=== PATIENT | female | born 1980 | race Caucasian/White ===

== ENCOUNTER 2019-01-13 09:00 | Inpatient (IN) | payer MEDICAID, OTHER ==
[2019-01-13] MEDS ORDERED: BRETHINE SUB-Q PRN (09:32)
[2019-01-13] MEDS ORDERED: LANSINOH TP PRN (09:37)
[2019-01-13] MEDS ORDERED: NORCO 5/325 PO PRN (09:37)
[2019-01-13] MEDS ORDERED: TUCKS PAD TP PRN (09:37)
[2019-01-13] MEDS ORDERED: IBUPROFEN ONE (09:48)
--- NOTE | 2019-01-13 09:56 | History and Physical Report ---
History of Present Illness Date of examination: 01/13/19 Date of admission: 01/13/19 09:00 Chief complaint: Contractions History of present illness: 38 year old presents to L&D in active advanced labor and feeling need to push. She states contractions began at 06:30 this morning and a small amount of clear fluid leaked at 07:30 this morning. Patient denies vaginal bleeding. Patient received care at [facility] and she brings records with her. LMP 04/03/18. EDC 01/08/19. significant for the following: Advanced maternal age, GBS positive, last baby with heart defect (patient declined perinatology). labs are as follows: B+, antibody screen negative, pap smear negative, rubella immune, RPR nonreactive, hepatitis B surface antigen negative, HIV negative, chlamydia negative, gonorrhea negative, quad screen negative, diabetes screen 91, GBS positive. 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 denies: smoking, alcohol abuse, prescription drug abuse, IV drug use - Obstetrical History Expected Date of Delivery: 01/08/19 Actual Gestation: 40 Week(s) 5 Day(s) : 4 Para: 2 Hx # Term Pregnancies: 2 Number of Pregnancies: 0 Spontaneous Abortions: 1 Induced : 0 Number of Living Children: 2 Medications and Allergies Active Meds: Active Medications Acetaminophen/Hydrocodone Bitart ([place] 5/325) 2 each PO Q6H PRN PRN Reason: Pain, Moderate (4-6) Bisacodyl (Dulcolax) 10 mg MD BID PRN PRN Reason: Constipation Docusate Sodium (Colace) 100 mg PO BID SAMUEL Ephedrine Sulfate (Ephedrine Sulfate) 10 mg IV Q2M PRN PRN Reason: Hypotension Oxytocin/Sodium Chloride (Pitocin/Ns 20 Unit/1000ml Drip) 20 units in 1,000 mls @ 125 mls/hr IV DIRECT SAMUEL Lactated Ringer's (Lactated Ringers) 1,000 mls @ 125 mls/hr IV DIRECT SAMUEL Ibuprofen (Ibuprofen) 800 mg PO Q8H PRN PRN Reason: Pain, Mild (1-3) Magnesium Hydroxide (Milk Of Magnesia) 30 ml PO HS PRN PRN Reason: Constipation Multi-Ingredient Ointment (Lansinoh) 1 applic TP PRN PRN PRN Reason: Sore Nipples Sodium Chloride (Sodium Chloride Flush Syringe 10 Ml) 10 ml IV PRN NR Terbutaline Sulfate (Brethine) 0.25 mg SUB-Q ONCE PRN PRN Reason: Hyperstimulation/Hypertonicity Witch Danielle/Glycerin (Tucks Pad) 1 each TP PRN PRN PRN Reason: Hemorrhoid/cleansing/soothing Review of Systems All systems: negative (contractions and leaking of water) - Vital Signs Vital signs: Vital Signs Pulse Pulse Ox 91 H 99 01/13/19 09:19 01/13/19 09:19 Temp Pulse Resp BP Pulse Ox 71 149/84 99 01/13/19 09:47 01/13/19 09:47 01/13/19 09:24 - Physical Exam Abdomen: Positive: normal appearance, soft. Negative: distention, tenderness, guarding, rigidity Genitourinary (Female): Positive: normal external genitalia, normal perenium. Negative: perineal/vulvar lesions Vagina: Positive: normal moisture Uterus: Positive: enlarged. Negative: tender Anus/Rectum: Positive: normal perianal skin Extremities: Positive: normal. Negative: tenderness, edema - Obstetrical FHR: category 2 Uterine Contraction Monitor Mode: External Cervical Dilatation: 10 Cervical Effacement Percentage: 10 station: +2 Uterine Contraction Pattern: Regular Uterine Contraction Intensity: Strong/Firm Results All other labs normal. Assessment and Plan A: at 40 weeks, 5 days gestation. Active advanced labor. GBS positive. P: Admit. Anticipate vaginal . Baby delivering upon presentation to OB unit; no IV in place; patient did not receive GBS prophylaxis for this reason.
[2019-01-13 09:58] LABS: Hematocrit 45.3 % (30.3-42.9); Hemoglobin 15.4 gm/dl (10.1-14.3); Mean Corpuscular HGB Conc 34 % (30-34); Mean Corpuscular Volume 87 fl (79-97); Platelet Count 279 K/mm3 (140-440); Red Cell Distribution Width 15.3 % (13.2-15.2)
[2019-01-13] MEDS ORDERED: LACTATED RINGERS 1,000 ML IV SCH (10:00)
[2019-01-13] MEDS ORDERED: SODIUM CHLORIDE FLUSH SYRINGE 10 ML IV NR (10:00)
[2019-01-13] MEDS ORDERED: DULCOLAX PR PRN (10:00)
[2019-01-13] MEDS ORDERED: PITOCin/NS 20 UNIT/1000ML DRIP 20 UNITS/1,000 ML BAG IV SCH (10:00)
[2019-01-13] MEDS ORDERED: IBUPROFEN PO SCH (10:00)
[2019-01-13] MEDS: IBUPROFEN PO PRN ×2 (10:01→18:18)
--- NOTE | 2019-01-13 11:05 | Procedure Note ---
OB Delivery Note - Delivery Date of Delivery: 01/13/19 Surgeon: CECI HENDRICKS Estimated blood loss: 200cc - Vaginal Delivery presentation: vertex Delivery position: OA Delivery induction: none Delivery monitor: external FHT, external uterine Delivery placenta: spontaneous Delivery cord: 3 umbilical vessels Episiotomy: none Delivery laceration: none Anesthesia: epidural Delivery comments: Spontaneous vaginal delivery at 09:17 of liveborn female weighing 8 lb. 9 oz. over intact perineum with apgars of 8/8. Baby placed immediately skin to skin with mom after . 3 vessel cord double clamped and cut after cessation of pulsation. Spontaneous delivery of intact placenta and membranes. EBL 200 cc. Pitocin given after delivery of placenta. Fundus firm and midline. Vaginal sweep negative. No lacerations noted. Sponge count correct. Mother and baby stable.
--- NOTE | 2019-01-13 11:22 | Event Note ---
Date: 01/13/19 Patient started on Augmentin PO for right vulvar abscess. Planning to breastfeed.
[2019-01-13] MEDS: AUGMENTIN 500 MG PO SCH ×2 (13:55→21:24)
[2019-01-13] MEDS ORDERED: SUBLIMAZE ONE (14:36)
[2019-01-13] MEDS ORDERED: SUBLIMAZE IV ONE (15:32)
--- NOTE | 2019-01-13 15:53 | Event Note ---
Date: 01/13/19 Called to evaluate patient due to vulvar pain. What was previously thought to be a small right vulvar abscess now appears to be an enlarging hematoma, stretching from mons pubis to anus. Dr. Cook notified and he also came and examined patient. Pelvic CT ordered by Dr. Cook. CBC ordered. Pt. has received Fentanyl for pain.
[2019-01-13 16:39] LABS: Hematocrit 36.4 % (30.3-42.9); Hemoglobin 12.5 gm/dl (10.1-14.3); Mean Corpuscular HGB Conc 34 % (30-34); Mean Corpuscular Volume 87 fl (79-97); Platelet Count 210 K/mm3 (140-440); Red Blood Count 4.18 M/mm3 (3.65-5.03); Red Cell Distribution Width 15.4 % (13.2-15.2)
[2019-01-13 17:33] LABS: Band Neutrophils # (Manual) 0.5 K/mm3; Basophils % (Manual) 0 % (0.0-1.8); Eosinophils % (Manual) 0 % (0.0-4.3); Total Cells Counted 100
[2019-01-13 17:34] LABS: Ovalocytes Few; Platelet Estimate Consistent w Auto; Poikilocytosis Few
--- NOTE | 2019-01-13 18:17 | Cat Scan Report ---
PROCEDURE: CT PELVIS WO CON TECHNIQUE: CT of the pelvis obtained without contrast. HISTORY: Vulvar hematoma/mass COMPARISONS: FINDINGS: There is an 8.5 x 3.5 x 6.5 cm hypodense lesion seen along the right vulvar soft tissue with surround ing stranding, worrisome for hematoma. Correlate for recent trauma versus instrumentation. Mass effec t seen on the urethra and Motley catheter. Uterus is enlarged with hyperdense clot seen in the lower uterine segment/cervix. Motley catheter seen in the collapsed bladder. No acute fracture or dislocation. IMPRESSION: an 8.5 x 3.5 x 6.5 cm hypodense lesion seen along the right vulvar soft tissue with surrounding stran ding, worrisome for hematoma. Correlate for recent trauma versus instrumentation. Mass effect seen on the urethra and Motley catheter.. This document is electronically signed by Ranjit Bowden MD., January 13 2019 07:15:46 PM ET
[2019-01-13] MEDS: PERCOCET 5/325 PO PRN (18:18)
[2019-01-13] MEDS: COLACE PO SCH ×2 (18:38→21:24)
[2019-01-13 20:26] LABS: Hematocrit 36.6 % (30.3-42.9); Hemoglobin 12.3 gm/dl (10.1-14.3)
[2019-01-13] MEDS ORDERED: MILK OF MAGNESIA PO PRN (22:00)
--- NOTE | 2019-01-14 07:46 | Event Note ---
Date: 01/14/19 Spoke with patient's nurse who states pt.'s pain is well controlled on Percocet. H/H pending this morning still. Motley catheter in place draining well. Made Dr. Cook aware of pelvic CT results last evening. Just informed oncoming CNM and MD of hematoma and pelvic CT results and pending H/H.
[2019-01-14 08:48] LABS: Hematocrit 33.8 % (30.3-42.9); Hemoglobin 11.5 gm/dl (10.1-14.3)
[2019-01-14] MEDS: AUGMENTIN 500 MG PO SCH ×2 (10:47→22:38)
[2019-01-14] MEDS: COLACE PO SCH ×2 (10:47→22:39)
--- NOTE | 2019-01-14 12:59 | Progress Note ---
Assessment and Plan - Patient Problems (1) Vulvar hematoma Current Visit: Yes Status: Acute Plan to address problem: 1. Re-examine tomorrow. Anticipate need for hematoma evacuation due to urethral displacement. Regular diet now and NPO at night. Will continue main OR and consult interventional radiology for possible artery embolization Monitor creatinine and H/H. Subjective - Subjective Interval history: PPD#1 s/p now managed for 8.5cm right vulvar hematoma. She reports the hematoma as painful. The fonseca catheter is in place and visually displaced to the left. She states the narcotics are helping her pain. Her vaginal bleeding is well controlled. Objective - Vital Signs Latest vital signs: Vital Signs Temp Pulse Resp BP BP Pulse Ox 01/14/19 07:43 97.7 F 62 18 115/73 98 01/14/19 01:40 98 F 69 20 106/67 96 01/13/19 21:32 97.9 F 81 18 124/74 98 01/13/19 16:51 98.0 F 67 22 122/76 97 01/13/19 15:55 98.1 F 66 20 134/69 96 01/13/19 13:00 98.2 F 92 H 14 137/80 98 Intake and Output 01/13/19 01/14/19 01/14/19 23:59 07:59 15:59 Intake Total 240 660 Output Total 300 800 Balance -60 -140 Intake: Intake, Free Water 240 660 Output: Urine 300 800 Indwelling Catheter 800 Uretheral (Fonseca) 300 Other: Total, Output Amount 200 - Exam Vulva: right: laceration/episiotomy (Right vulvar hematoma examined, tender to touch, non erythematous, firm 8.5x3.5x6.5cm on CT, displacing fonseca catheter ) - Labs Labs: Abnormal lab results 01/13/19 Range/Units 16:21 WBC 15.4 H (4.5-11.0) K/mm3 RDW 15.4 H (13.2-15.2) % Seg Neuts % (Manual) 89.0 H (40.0-70.0) % Lymphocytes % (Manual) 4.0 L (13.4-35.0) % Seg Neutrophils # Man 13.7 H (1.8-7.7) K/mm3 Lymphocytes # (Manual) 0.6 L (1.2-5.4) K/mm3
[2019-01-14] MEDS: PERCOCET 5/325 PO PRN (13:10)
[2019-01-14 13:39] LABS: BUN/Creatinine Ratio 15; Blood Urea Nitrogen 6 mg/dL (7-17); Calcium 8.7 mg/dL (8.4-10.2); Hemolysis Index 12
[2019-01-14 15:17] LABS: Hematocrit 35.9 % (30.3-42.9); Hemoglobin 12.2 gm/dl (10.1-14.3); Mean Corpuscular HGB Conc 34 % (30-34); Mean Corpuscular Volume 87 fl (79-97); Platelet Count 218 K/mm3 (140-440); Red Blood Count 4.12 M/mm3 (3.65-5.03); Red Cell Distribution Width 15.5 % (13.2-15.2)
--- NOTE | 2019-01-14 15:42 | Consultation ---
History of Present Illness - Reason for Consult Consult date: 01/14/19 right labial hematoma - History of Present Illness 38 year old presents to L&D in active advanced labor and feeling need to push. She had a vaginal delivery yesterday. Immediately afterwards, she developed a fullness in the right labia which was quite painful and began to enlarge. The enlarging labial mass/hematoma enlarged yesterday, but has not enlarged at all today. Stable in size per patient. Overlying skin is not compromised. Large right labial hematoma. Palpable radial artery and ulnar artery on physical exam. Past History Past Medical History: No medical history Past Surgical History: No surgical history Social history: , lives with family, full code. denies: smoking, alcohol abuse, prescription drug abuse, IV drug use Family history: no significant family history Medications and Allergies Allergies Allergy/AdvReac Type Severity Reaction Status Date / Time No Known Allergies Allergy Verified 01/13/19 09:57 Home Medications Medication Instructions Recorded Confirmed Last Taken Type Vit-Fe Fumar-FA [ 1 tab PO QDAY 01/13/19 01/13/19 01/12/19 09:00 History Vitamin] 1 Active Meds: Active Medications Amoxicillin/Clavulanate Potassium (Augmentin 500 Mg) 1 each PO Q12HR [facility] Last Admin: 01/14/19 10:47 Dose: 1 each Documented by: Bisacodyl (Dulcolax) 10 mg KS BID PRN PRN Reason: Constipation Docusate Sodium (Colace) 100 mg PO BID [facility] Last Admin: 01/14/19 10:47 Dose: 100 mg Documented by: Ibuprofen (Ibuprofen) 800 mg PO Q8H PRN PRN Reason: Pain, Mild (1-3) Last Admin: 01/13/19 18:18 Dose: 800 mg Documented by: Magnesium Hydroxide (Milk Of Magnesia) 30 ml PO HS PRN PRN Reason: Constipation Multi-Ingredient Ointment (Lansinoh) 1 applic TP PRN PRN PRN Reason: Sore Nipples Last Admin: 01/13/19 18:17 Dose: 1 applic Documented by: Oxycodone/Acetaminophen (Percocet 5/325) 2 tab PO Q6H PRN PRN Reason: Pain, Moderate (4-6) Last Admin: 01/14/19 13:10 Dose: 2 tab Documented by: Sodium Chloride (Sodium Chloride Flush Syringe 10 Ml) 10 ml IV PRN NR Stop: 01/14/19 23:59 Witch Danielle/Glycerin (Tucks Pad) 1 each TP PRN PRN PRN Reason: Hemorrhoid/cleansing/soothing Last Admin: 01/13/19 18:17 Dose: 1 each Documented by: Review of Systems All systems: negative (see HPI) Exam - Constitutional Vitals: Temp Pulse Resp BP Pulse Ox 97.7 F 62 18 115/73 98 01/14/19 07:43 01/14/19 07:43 01/14/19 07:43 01/14/19 07:43 01/14/19 07:43 General appearance: Present: mild distress (right labial hematoma) - EENT Eyes: Present: EOM intact ENT: hearing intact - Respiratory Respiratory effort: normal - Extremities Extremities: normal temperature, normal color Peripheral Pulses: within normal limits (left radial and ulnar pulse) - Abdominal General gastrointestinal: Present: soft Female genitourinary: Present: other (right labial hematoma without skin compromise) - Psychiatric Psychiatric: appropriate mood/affect, cooperative Results - Labs CBC & Chem 7: 01/14/19 14:45 01/14/19 12:55 Labs: Abnormal lab results 01/13/19 01/14/19 01/14/19 Range/Units 16:21 12:55 14:45 WBC 15.4 H (4.5-11.0) K/mm3 RDW 15.4 H 15.5 H (13.2-15.2) % Seg Neuts % (Manual) 89.0 H (40.0-70.0) % Lymphocytes % (Manual) 4.0 L (13.4-35.0) % Seg Neutrophils # Man 13.7 H (1.8-7.7) K/mm3 Lymphocytes # (Manual) 0.6 L (1.2-5.4) K/mm3 Carbon Dioxide 21 L (22-30) mmol/L BUN 6 L (7-17) mg/dL Creatinine 0.4 L (0.7-1.2) mg/dL Assessment and Plan 38-year-old female with large right labial hematoma occurring after vaginal delivery which has not enlarged since this morning. Given the lack of enlargement, no emergent need for embolization. CT angiogram of the abdomen and pelvis will be performed. Based on results, such as if there is a pseudoaneurysm, then angiography and embolization will be re quired. CTA ordered.
[2019-01-14] MEDS: IBUPROFEN PO PRN (17:36)
--- NOTE | 2019-01-14 18:57 | Cat Scan Report ---
PROCEDURE: CT ABDOMEN PELVIS WO/W CON TECHNIQUE: Computerized axial tomography of the abdomen and pelvis was performed without and with in travenous contrast. Arterial, venous, delayed phases was obtained HISTORY: non cont, CT angio, CT susan, CT delay R lab hematom COMPARISONS: CT pelvis 01/13/2019 . FINDINGS: Visualized lower thorax: No significant abnormality. Liver: Normal size and attenuation. Spleen: Normal size and attenuation. Gallbladder and biliary system: Normal. Pancreas: Normal. Adrenals: Normal. Kidneys: Normal. GI tract: Normal . Lymph nodes and mesentery: Normal. Vasculature: Normal.. Bladder: Collapsed containing a Motley catheter balloon. Reproductive organs: Uterus is markedly enlarged extending up to the level the umbilicus. There is a hyperdense focus in the endometrial canal of the lower uterus and cervical canal, likely areas of blo od clot. On the arterial images, the intrauterine vasculature extends close to the posterior margin o f the endometrium within the the upper uterus (sagittal image 106/209, series 601). However, no defin ite extravasation of contrast into the endometrial canal is visualized on this exam. There are 2 hypodense foci along the right side of the uterus anterior margin measuring 2.2 cm and 1. 5 cm, likely small fibroids. Similar focus is seen in the left margin of the uterine fundus measuring 1.8 cm, also likely a fibroid. Peritoneum: No free fluid. Musculoskeletal structures: No significant abnormality. Other: Bilobed mildly hyperdense lesion in the right side of the vulva is unchanged in appearance. S urrounding edema in the adjacent fat is again noted, similar to the previous study. The mass effect o n the urethra shifting it to the left is unchanged. IMPRESSION: 1. Enlarged uterus containing hyperdense material within the lower endometrial canal and cervical can al, likely related to blood clots 2. The intrauterine vasculature extends close to the posterior margin of the endometrium within the u pper uterus. Definite extravasation of contrast into the endometrial canal is not visualized 3. Multiple hypodense foci in the uterus periphery, likely fibroids 4. No change in the hyperdense bilobed focus involving the right side of the vulva This document is electronically signed by Rose Marie House MD., January 14 2019 07:55:44 PM ET
[2019-01-15] MEDS: PERCOCET 5/325 PO PRN ×4 (06:27→22:53)
[2019-01-15] MEDS: AUGMENTIN 500 MG PO SCH (10:28)
[2019-01-15] MEDS: IBUPROFEN PO PRN (10:29)
[2019-01-15] MEDS: COLACE PO SCH ×2 (10:31→22:53)
--- NOTE | 2019-01-15 10:49 | Event Note ---
Date: 01/15/19 CTA of the abdomen and pelvis reviewed. Other does not appear to be any pseudoaneurysm or active bleeding within the hematoma. Would not do pre- operative embolization prior to evacuation however, we will be available should the need arise.
--- NOTE | 2019-01-15 10:57 | Progress Note ---
Assessment and Plan - Patient Problems (1) (normal spontaneous vaginal delivery) Current Visit: Yes Status: Acute Plan to address problem: Continue routine PP orders Remain NPO until seen by physician to discuss POC (2) Vulvar hematoma Current Visit: Yes Status: Acute Plan to address problem: Consultation with physician regarding POC Continue pain meds as needed for comfort Anticipate d/c home in 24-48 hrs Subjective - Subjective Date of service: 01/15/19 Principal diagnosis: ; Hematoma (vaginal) Interval history: See Admission H & P, OB delivery summary and PP progress notes Patient reports: appetite normal, voiding normally, pain poorly controlled (hematoma site painful) : doing well, other () Objective - Vital Signs Latest vital signs: Vital Signs Temp Pulse Resp BP BP Pulse Ox 01/15/19 08:49 98.1 F 59 L 18 122/79 98 01/15/19 02:15 98.2 F 63 20 112/74 97 01/14/19 17:46 97.9 F 68 20 116/73 98 Intake and Output 01/14/19 01/15/19 01/15/19 23:59 07:59 15:59 Intake Total 240 Output Total 1000 Balance -1000 240 Intake: Oral 240 Output: Urine 1000 Indwelling Catheter 1000 Other: Total, Intake Amount 240 Total, Output Amount 1000 # Voids Indwelling Catheter 1 Void 1 - Exam Breasts: Present: normal Cardiovascular: Present: Regular rate Lungs: Present: Normal air movement Abdomen: Present: soft, normal bowel sounds Vulva: right: normal (Large hematoma noted on right ) Uterus: Present: firm, fundal height below umbilicus (U-1) Extremities: Present: normal Deep Tendon Reflex Grade: Normal +2 - Labs Labs: Abnormal lab results 01/14/19 01/14/19 Range/Units 12:55 14:45 RDW 15.5 H (13.2-15.2) % Carbon Dioxide 21 L (22-30) mmol/L BUN 6 L (7-17) mg/dL Creatinine 0.4 L (0.7-1.2) mg/dL
[2019-01-15] MEDS ORDERED: DILAUDID IV PRN (13:22)
[2019-01-15] MEDS ORDERED: SUBLIMAZE IV PRN (13:22)
[2019-01-15] MEDS ORDERED: ZOFRAN IV PRN (13:22)
--- NOTE | 2019-01-15 13:32 | Anesthesia Day of Surgery ---
Anesthesia Day of Surgery - Day of Surgery Patient Examined: Yes Patient H&P Reviewed: Yes Patient is NPO: Yes
--- NOTE | 2019-01-15 13:33 | Anesthesia Consultation ---
Anesthesia Consult and Med Hx Date of service: 01/15/19 - Airway Anesthetic Teeth Evaluation: Good ROM Head & Neck: Adequate Mental/Hyoid Distance: Adequate Mallampati Class: Class II Intubation Access Assessment: Good - Pre-Operative Health Status ASA Pre-Surgery Classification: ASA2 Proposed Anesthetic Plan: General - Pre-Anesthesia Comment Pre-Anesthesia Comments: Pt is post- and is - Pulmonary Hx Asthma: No - Cardiovascular System Hx Hypertension: No - Central Nervous System Hx Seizures: No Hx Psychiatric Problems: No - Endocrine Hx Renal Disease: No Hx Hypothyroidism: No Hx Hyperthyroidism: No - Hematic Hx Anemia: No Hx Sickle Cell Disease: No - Other Systems Hx Alcohol Use: No
--- NOTE | 2019-01-15 13:39 | Event Note ---
Spoke with Dr. Russell and agrees with decision to proceed to surgical management due to size of non-expanding vulvar hematoma that has not decreased in size. He states interpretation of CT is that the hematoma is not actively bleeding. Discussed risks including but not limited to bleeding, infection, injury to surrounding organs including rectum, disfigurement of vulvar, skin, vulvar scarring and loss of sensation. Benefits and alternatives discussed and informed consent signed. All questions were answered. Proceed to evacuation of right vulvar hematoma.
[2019-01-15] MEDS ORDERED: SUBLIMAZE ONE (13:42)
[2019-01-15] MEDS ORDERED: DIPRIVAN 10 MG/ML IV ONE (13:42)
[2019-01-15] MEDS ORDERED: ceFAZolin 2 GM in NACL 0.9% 100 ML IV NR (13:45)
[2019-01-15] MEDS ORDERED: LACTATED RINGERS 1,000 ML ONE ×3 (13:56→16:56)
[2019-01-15] MEDS ORDERED: FLAGYL 500 MG/100 ML 500 MG/100 ML BAG IV NR (14:00)
[2019-01-15] MEDS ORDERED: ANCEF/STERILE WATER 2 GM/20 ML 2 GM/20 ML SYRINGE IV SCH (14:00)
[2019-01-15] MEDS ORDERED: NACL 0.9% IR ONE (14:07)
[2019-01-15] MEDS ORDERED: ZOFRAN ONE (15:05)
[2019-01-15] MEDS ORDERED: ROBINUL ONE (15:05)
[2019-01-15] MEDS ORDERED: XYLOCAINE MPF 2% ONE (15:05)
[2019-01-15] MEDS ORDERED: ZEMURON IV ONE (15:05)
[2019-01-15] MEDS ORDERED: DECADRON ONE (15:05)
[2019-01-15] MEDS ORDERED: QUELICIN ONE ×2 (15:05→15:06)
[2019-01-15] MEDS ORDERED: XYLOCAINE 2%/EPI 1:100,000 INFILTRATI ONE ×2 (15:16→15:33)
[2019-01-15] MEDS ORDERED: WATER FOR IRRIG STERILE IR ONE (15:34)
[2019-01-15] MEDS ORDERED: ANTIBIOTIC OINT TP ONE ×2 (15:39→15:40)
[2019-01-15] MEDS ORDERED: METHYLENE BLUE ONE (15:45)
--- NOTE | 2019-01-15 16:41 | Operative Report ---
Operative Report Operative Report: DATE OF OPERATION: 01/15/19 PREOP Diagnosis 1. Right vulvar puerperal hematoma (8.5cm) 2. Lower urinary tract obstruction 3. Perineal laceration secondary to edematous right vulva Postop Diagnosis 1. Right vulvar puerperal hematoma (8.5cm) 2. Lower urinary tract obstruction 3. Perineal laceration secondary to edematous right vulva Procedure: 1. Evacuation of right hematoma 2. Cystourethroscopy 3. First degree vaginal repair Findings 1. Right edematous vulvar hematorma 2. Active bleeding of vaginal muscularis and mucosa 3. Expansion of vulvar defect in anterior pelvic triangle and extending to posterior pubic symphisis limited by Colle's fascia 4. No suture defects noted in urethra or bladder Surgeon 1. Danisha Elizabeth MD Anesthesia: 1. General I/O: EBL: 200ml Urine output: 200ml clear urine Specimens removed: 1. none Complications: none Disposition: Patient taken to recovery room in stable condition INDICATIONS: The patient is a 38yo that underwent a preciptious spontaneous vaginal delivery on 01/13/2019. She then subsequently developed a right vulvar hematoma that was identified on CT as 8.5cm with mass effect on the lower urinary tract. After consult with interventional radiology and further evaluation the decision to abandon conservative management and proceed to surgical treatment was made based on urinary tract obstruction, the size of the hematoma and no improvement in patient symptoms. The risks including but not limited to bleeding, infection, injury to surrounding organs such as bladder and vagina, vulvar/vaginal scarring or disfigurement and loss of sensation was discussed with patient. Benefits and alternatives were discussed. All questions were answered and informed consent signed. PROCEDURE: The patient was taken to OR10 in stable condition and placed in the supine position. She wore SCDs for DVT prophylaxis and received Ancef and Flagyl IV. Adequate anesthesia was achieved. She was prepped and draped in the sterile fashion and a time out was done. A #15 blade was used to excise a vertical incision in the right vaginal epithelieum. A suction catheter was placed in the incision and clots and blood were evacuated. The incision was extended and site of bleeding on the anterior surface of the vaginal mucosa was identified and the mucosa and muscularis layer was plicated using 2-0 Vicryl. The space was irrigated and injected with Lidocaine 1% with epinephrine. Once the bleeding was controlled the defect was plicated in interrupted sutures of 2-0 Vicryl. The vaginal epithelium was closed with 3-0 Vicryl in a running stitch. Bacitracin cream was applied to the suture line. The first degree perineal laceration was repaired with 3-0 Vicryl and hemostasis was noted. Due to the proximity of the surgical area to the urethra and bladder a cystoscopy was done. The fonseca catheter was removed and the cystourethroscopy revealed no defects in the bladder base, trigone or urethra. The patient was given methylene blue IV but decision made to end case prior to efflux since ureters were not in the surgical field. The cystoscopy was removed from the bladder and urethra. A new fonseca catheter was placed. All counts were correct x 2. The patient was then to the recovery room in stable condition.
--- NOTE | 2019-01-15 17:56 | Discharge Summary ---
Providers - Providers Date of Admission: 01/13/19 09:00 Attending physician: HEATHER COTTO MD interventional radiology Primary care physician: HEATHER COTTO MD Hospitalization Procedure: other Other procedures: other complications: hematoma, other Hospital course: Patient underwent a routine spontaneous vaginal delivery then developed a right vulvar hematoma that required evacuation. See op report below. DATE OF OPERATION: 01/15/19 PREOP Diagnosis 1. Right vulvar puerperal hematoma (8.5cm) 2. Lower urinary tract obstruction 3. Perineal laceration secondary to edematous right vulva Postop Diagnosis 1. Right vulvar puerperal hematoma (8.5cm) 2. Lower urinary tract obstruction 3. Perineal laceration secondary to edematous right vulva Procedure: 1. Evacuation of right hematoma 2. Cystourethroscopy 3. First degree vaginal repair Findings 1. Right edematous vulvar hematorma 2. Active bleeding of vaginal muscularis and mucosa 3. Expansion of vulvar defect in anterior pelvic triangle and extending to posterior pubic symphisis limited by Colle's fascia 4. No suture defects noted in urethra or bladder Surgeon 1. Danisha Elizabeth MD Anesthesia: 1. General I/O: EBL: 200ml Urine output: 200ml clear urine Specimens removed: 1. none Complications: none Disposition: Patient taken to recovery room in stable condition INDICATIONS: The patient is a 38yo that underwent a preciptious spontaneous vaginal delivery on 01/13/2019. She then subsequently developed a right vulvar hematoma that was identified on CT as 8.5cm with mass effect on the lower urinary tract. After consult with interventional radiology and further evaluation the decision to abandon conservative management and proceed to surgical treatment was made based on urinary tract obstruction, the size of the hematoma and no improvement in patient symptoms. The risks including but not limited to bleeding, infection, injury to surrounding organs such as bladder and vagina, vulvar/vaginal scarring or disfigurement and loss of sensation was discussed with patient. Benefits and alternatives were discussed. All questions were answered and informed consent signed. PROCEDURE: The patient was taken to OR10 in stable condition and placed in the supine position. She wore SCDs for DVT prophylaxis and received Ancef and Flagyl IV. Adequate anesthesia was achieved. She was prepped and draped in the sterile fashion and a time out was done. A #15 blade was used to excise a vertical incision in the right vaginal epithelieum. A suction catheter was placed in the incision and clots and blood were evacuated. The incision was extended and site of bleeding on the anterior surface of the vaginal mucosa was identified and the mucosa and muscularis layer was plicated using 2-0 Vicryl. The space was irrigated and injected with Lidocaine 1% with epinephrine. Once the bleeding was controlled the defect was plicated in interrupted sutures of 2-0 Vicryl. The vaginal epithelium was closed with 3-0 Vicryl in a running stitch. Bacitracin cream was applied to the suture line. The first degree perineal laceration was repaired with 3-0 Vicryl and hemostasis was noted. Due to the proximity of the surgical area to the urethra and bladder a cystoscopy was done. The fonseca catheter was removed and the cystourethroscopy revealed no defects in the bladder base, trigone or urethra. The patient was given methylene blue IV but decision made to end case prior to efflux since ureters were not in the surgical field. The cystoscopy was removed from the bladder and urethra. A new fonseca catheter was placed. All counts were correct x 2. The patient was then to the recovery room in stable condition. Condition at discharge: Stable Disposition: - TO HOME OR SELFCARE - Discharge Diagnoses (1) Vulvar hematoma Status: Acute Plan - Discharge Medications Prescriptions: Sulfamethoxazole/Trimethoprim [Bactrim DS TAB] 1 each PO DAILY 5 Days #5 tablet Ibuprofen [Motrin 800 MG tab] 800 mg PO Q8HR PRN 30 Days #30 tablet PRN Reason: Pain, Moderate (4-6) HYDROcodone/APAP 5-325 [[place] 5/325] 1 each PO Q6HR PRN 5 Days #15 tablet PRN Reason: Pain - Provider Discharge Summary Activity: no sex for 6 weeks, no heavy lifting 4 weeks, no strenuous exercise Additional instructions: [] Smoking cessation referral if applicable(refer to patient education folder for contact #) [] Refer to [facility] Booklet Call your doctor immediately for: * Fever > 100.5 * Heavy vaginal bleeding ( >1 pad per hour) * Severe persistent headache * Shortness of breath * Reddened, hot, painful area to leg or breast * Drainage or odor from incision. * Keep incision clean and dry at all times and follow doctor's instructions regarding bathing/showering APPLY BACITRACIN OINTMENT TWICE PER DAY FOLLOW-UP [facility] WITH JAILYN IN ONE WEEK. - Follow up plan Follow up: HEATHER COTTO MD [Primary Care Provider] - 7 Days
[2019-01-16 06:21] LABS: Hematocrit 28.8 % (30.3-42.9); Mean Corpuscular HGB Conc 35 % (30-34); Mean Corpuscular Volume 88 fl (79-97); Platelet Count 207 K/mm3 (140-440); Red Blood Count 3.29 M/mm3 (3.65-5.03); Red Cell Distribution Width 15.7 % (13.2-15.2)
[2019-01-16] MEDS: PERCOCET 5/325 PO PRN ×2 (06:23→13:34)
[2019-01-16] MEDS: COLACE PO SCH (13:35)
[2019-01-16] MEDS: IBUPROFEN PO PRN (13:35)
[2019-01-16 17:58] VITALS: BP 118/86
== END 2019-01-16 20:51 | disposition home or self-care (01) | DRG 768 ==
LOC: LD 09:00 → OB 13:01
PROVIDERS: ADMIT Obstetrics & Gynecology; ATTEND Obstetrics & Gynecology
PROC: 10E0XZZ Delivery of Products of Conception, External Approach (ICD-10-PCS; principal; 2019-01-13)
PROC: 3E0R3BZ Introduction of Anesthetic Agent into Spinal Canal, Percutaneous Approach (ICD-10-PCS; 2019-01-13)
PROC: 00HU33Z Insertion of Infusion Device into Spinal Canal, Percutaneous Approach (ICD-10-PCS; 2019-01-13)
PROC: 0UCM0ZZ Extirpation of Matter from Vulva, Open Approach (ICD-10-PCS; 2019-01-15)
PROC: 0HQ9XZZ Repair Perineum Skin, External Approach (ICD-10-PCS; 2019-01-15)
DX: O99.824 Streptococcus B carrier state complicating childbirth (principal); Z37.0 Single live birth; O62.3 Precipitate labor; Z3A.40 40 weeks gestation of pregnancy; O86.19 Other infection of genital tract following delivery; O71.7 Obstetric hematoma of pelvis; O70.0 First degree perineal laceration during delivery; N13.9 Obstructive and reflux uropathy, unspecified; O90.89 Other complications of the puerperium, not elsewhere classified
CPT/HCPCS: 36415; 72192; 74178; 80048; 82565; 85007; 85014; 85018; 85025; 85027; 86592; 86850; 86900; 86901; G0378; A4217; A6250; J0330; J1100; J2405; J2704; J3010; J7120; Q9967; Q9968